=== PATIENT | male | born 1995 | race Two or more races ===

== ENCOUNTER 2023-09-16 04:20 | Emergency (ER) | payer OTHER ==
[~2023-09-16] VITALS: Ht 167.6 cm; Wt 99.8 kg
[2023-09-16 06:47] LABS: URINE APPEARANCE Clear; URINE BILIRRUBIN Negative (NEGATIVE); URINE BLOOD Small; URINE COLOR Yellow; URINE GLUCOSE Negative (NEGATIVE); URINE LEUKOCYTE Negative; URINE NITRATE Negative; URINE PROTEIN Negative (NEGATIVE); URINE UROBILINOGEN 0.2 E.U./dl
[2023-09-16 07:03] LABS: ABG PH 7.461 (7.35-7.45); ABG PO2 86.9 mmHg (80-100); ABG pCO2 35.1 mmHg (35-45); BASE EXCESS 1.2 mmol/l; BICARBONATE 24.5 mmol/l (23-25); SaO2 97.2 %; Tco2 25.6 mmol/l; allen test SATISFACTORY; o2 21 %; puncture site RADIAL LEFT
[2023-09-16 07:12] LABS: ALBUMIN 3.6 gm/dL (3.4-5.0); BILIRUBIN TOTAL 0.38 mg/dL (0.3-1.2); CALCIUM 8.7 mg/dL (8.5-10.1); CREATININE SERUM 0.9 mg/dL (0.70-1.30); GFR 99.08; GLOBULINA 3.9 G/DL (2.4-3.5); POTASSIUM 3.55 mEq/L (3.5-5.1); TOTAL PROTEIN 7.5 gm/dL (6.4-8.2)
[2023-09-16 07:28] LABS: HEMATOCRIT 39.1 % (39.0-48.0); HEMOGLOBIN 13.3 g/dL (13-16.00); MEAN CELL VOLUME 85.3 fL (80.0-100.00); MEAN CORPUSCULAR HEMOGLOBIN 28.9 pg (27.00-32.0); MEAN CORPUSCULAR HGB CONC 33.9 g/dl (32.0-36.0); PLATELET COUNT 203 K/uL (150-450); RED BLOOD COUNT 4.59 M/uL (4.00-6.00); RED CELL DISTRIBUTION WIDTH 14.6 % (11.5-14.5)
[2023-09-16 07:36] LABS: URINE RBC 27.5 uL (0.0-20.8)
[2023-09-16 07:51] LABS: URINE BACTERIA 3.7 uL (0.0-1933); URINE WBC 1.3 uL (0.0-23.2)
== END 2023-09-16 08:52 | disposition home or self-care (01) ==
LOC: ER 04:20
PROVIDERS: General Practice
DX: J40 Bronchitis, not specified as acute or chronic (principal); Z20.822 Contact with and (suspected) exposure to COVID-19